=== PATIENT | female | born 1950 | race Caucasian/White ===

== ENCOUNTER 2022-04-25 21:04 | Emergency (ER) | payer MEDICARE, OTHER, SELFPAY ==
[2022-04-25 21:11] VITALS: BP 181/86; PULSE 77; RESP 18; TEMP 36.9; O2SAT 98; BMI 43.4
[2022-04-25 21:24] VITALS: BP 181/86; PULSE 77; RESP 18; TEMP 36.9; O2SAT 98
--- NOTE | 2022-04-25 21:28 | XRR_ITS ---
PROCEDURE INFORMATION: Exam: XR Left Hip Exam date and time: 04/25/2022 9:47 PM Age: 71 years old Clinical indication: Injury or trauma; Fall; Blunt trauma (contusions or hematomas); Left; Hip; Additional info: Left leg pain that radiates to hip TECHNIQUE: Imaging protocol: Radiologic exam of the Left hip. Views: 2 or 3 views hip with pelvis when performed. COMPARISON: No relevant prior studies available. FINDINGS: Bones/joints: Unremarkable. No acute fracture. Soft tissues: Unremarkable. XR/XR hip LT 2-3V wo/w pel* [id number] IMPRESSION: No acute findings.
--- NOTE | 2022-04-25 21:28 | XRR_ITS ---
PROCEDURE INFORMATION: Exam: XR Left Knee Exam date and time: 04/25/2022 9:50 PM Age: 71 years old Clinical indication: Injury or trauma; Fall; Blunt trauma; Knee; Left; Additional info: Left knee pain TECHNIQUE: Imaging protocol: Radiologic exam of the Left knee. Views: 3 views. COMPARISON: No relevant prior studies available. FINDINGS: Bones/joints: The bones are intact and in normal alignment. The AP views are suboptimal due to the inability of the patient to fully extend the leg. Soft tissues: Unremarkable. XR/XR knee LT 3V* [id number] IMPRESSION: No fracture identified.
--- NOTE | 2022-04-25 21:29 | ED_ITS ---
HPI - Extremity Problem General: Chief complaint: Extremity Injury, Lower Stated complaint: LEFT KNEE PAIN/SWELLING Time Seen by Provider: 04/25/22 21:15 History of Present Illness: Patient is a 71-year-old female comes to the ED with left leg/knee pain. Patient was brought in via EMS and was given a dose of fentanyl while in route. Patient says for the last week she has been having pain in left knee and it hurts whenever she ambulates. She says she has been limping a lot for the past week. Denies any trauma or injury a week ago to start symptoms. Today just prior to arrival she was watering her plants and then she felt a pop in her left knee. She has not been able to ambulate on left leg since then. She rates her pain currently a 9 out of 10. Pain radiates up into her left hip. Associated symptoms: Deny chest pain, fever(s) or rash Review of Systems Const: Denies: fever(s), chills or fatigue Eyes: Denies: change in vision or eye discomfort ENMT: Denies: throat pain, odynophagia, nasal discharge or nasal congestion Card: Denies: chest pain, palpitations, edema, swelling of feet/ankles, dyspnea on exertion or orthopnea Resp: Denies: dyspnea, productive cough or non-productive cough GI: Denies: abdominal pain, nausea, vomiting, diarrhea, constipation or hematochezia : Denies: flank pain, dysuria or hematuria Musc: Reports: extremity pain (Left knee); Denies: neck pain, back pain or extremity swelling Skin/Breast: Denies: rash or new lesions Neuro: Denies: headache(s), numbness in extremities or weakness in extremities PFS ED PFSH: Medical History No pertinent family history Surgical History No pertinent past surgical history Physical Exam Const: COMMON NORMALS: patient oriented x3 and alert GENERAL APPEARANCE: cooperative HENMT: COMMON NORMALS: normocephalic HEAD & SCALP: normocephalic MOUTH: Normal oral and palatal mucosa present THROAT: posterior oropharynx normal and uvula midline Neck/C-Spine: COMMON NORMALS: supple GENERAL: Yes normal visual inspection Resp: COMMON NORMALS: normal respiratory effort, No retractions, No use of accessory muscles and clear to auscultation bilaterally AUSCULTATION: clear to auscultation bilaterally Cardio: COMMON NORMALS: regular rate, regular rhythm, S1 normal heart sound present, S2 normal heart sound present, No gallops present (Cardio), No clicks present (Cardio), No murmurs present (Cardio) and Peripheral pulses 2+ throughout RATE: regular rate RHYTHM: regular rhythm HEART SOUNDS: S1 normal heart sound present and S2 normal heart sound present PERIPHERAL PULSES: Peripheral pulses 2+ throughout GI: COMMON NORMALS: Normal to inspection, nondistended, normoactive bowel sounds present, Soft to palpation, non-tender and no masses PALPATION: Yes Soft to palpation : COMMON NORMALS: Yes no CVA tenderness BLADDER/KIDNEY EXAM: Yes no CVA tenderness Back/Pelvis: COMMON NORMALS: no CVA tenderness Extremity: NARRATIVE EXTREMITY EXAM: Patient left leg?no visible deformity noted. Tenderness over patella of left knee. Limited range of motion of knee due to pain. Neurovascular intact distally. Patient's left leg appears a little shortened and externally rotated. GENERAL: Yes normal exam except as noted Neuro: COMMON NORMALS: patient oriented x3 SENSORIUM/ORIENTATION: Yes alert GAIT: Yes Normal gait present Skin: GENERAL SKIN EXAM: dry skin Course Vital Signs: Vital signs: Vital Signs Temperature 98.5 F 04/26/22 00:37 Pulse Rate 81 04/26/22 00:37 Respiratory Rate 18 04/26/22 00:37 Blood Pressure 160/86 04/26/22 00:37 Pulse Oximetry 97 04/26/22 00:37 Oxygen Delivery Me thod 04/25/22 21:24 MDM - Extremity (Nontraumatic) Medical Decision Making Patient is a 71-year-old female comes to the ED with left leg/knee pain. Patient had been having left knee pain for the past week and tonight she was watering her plants and felt a pop in her left knee causing her pain. Vitals are stable. Patient has tenderness over patella of left knee. Left leg does appear little shortened and externally rotated. Neurovascular tact distally. X-ray of left knee and left hip showed no acute fractures or findings. Patient was diagnosed with left knee pain and likely some soft tissue/ligament injury. I placed an order with case management for patient and referred to Ortho for follow-up on left knee pain. She was put in a knee immobilizer discharged home with crutches. She was also sent home with a prescription for hydrocodone for pain. Return to ED precautions given. Patient understood and agreed with plan. Lab Data Radiology Impressions Hip/Pelvis X-Ray 04/25/22 21:28 IMPRESSION: No acute findings. Knee X-Ray 04/25/22 21:28 IMPRESSION: No fracture identified. Discharge Plan Discharge Patient Disposition: Home Clinical Impression: Knee pain, left Qualifiers: Chronicity: acute Qualified Code(s): M25.562 - Pain in left knee Condition: Stable Discharge Orders: Discharge ED (Routine); Ordered 04/25/22 Ordered By: Guy Byrnes Discharge Diet: Regular Discharge Activity: Increase activity as tolerated Patient Instructions: Knee Pain (ED), Opioid Safety Activity Restrictions/Additional Instructions: Follow-up with medical provider as directed. Case management should be counting in the next several days set up an appoint with Ortho for follow-up on left knee pain. Use crutches to help with ambulate and wear knee immobilizer. Rest, ice and elevate left knee. Take medications as prescribed. Return to the ER or your medical provider if condition worsens. Please read and understand discharge instructions. Thank you for choosing [facility] for your healthcare needs today. Please realize this is an emergency room and that we are providing you with a medical screening exam and this may not be complete and all inclusive of all the testing and or work up that you may need to determine your ailment or severity of your illness. It is very important that you follow up as instructed or that you return to the Emergency Department should you have concerns or if your condition changes or worsens in any way. Coding Level of Care Code ED [employer] Manager for Jolene Senior Exam Comprehensive
[2022-04-25] MEDS: morphine 4 mg/mL SDV 1 mL IVP (22:10)
[2022-04-26 00:37] VITALS: BP 160/86; PULSE 81; RESP 18; TEMP 36.9; O2SAT 97
[2022-04-26] MEDS: HYDROcodone-acetaminophen 7.5-325 mg Tablet 1 TAB PO (00:39)
--- NOTE | 2022-04-28 12:41 | DCPLANNER ---
Addendum entered by Yareli Mayer 05/08/22 07:35: this appointment was cancelled Addendum entered by Yareli Mayer 04/30/22 08:52: Patient has a follow up appointment scheduled for Friday, May 06, 2022 at 10:00 with Dimitri Mason at ortho. Clinic will call patient with appointment information. Original Note: forest manager had message to schedule a follow up appointment for patient with ortho. forest manager sent patients information to the front office staff at ortho. Patients information will be printed and reviewed. Clinic will call patient with appointment information.
== END 2022-04-26 00:39 | disposition home or self-care (01) ==
PROVIDERS: Emergency Provider Physician Assistant
DX: M25.562 Pain in left knee (principal)
CPT/HCPCS: 29530; 73502; 73562; 96374; 99284; E0114; J2270